=== PATIENT | female | born 1990 | race Asian ===

== ENCOUNTER 2018-10-19 02:59 | Inpatient (IN) | payer OTHER ==
[2018-10-19] VITALS (55 sets, daily range): BP systolic 98–164; BP diastolic 60–98; PULSE 63–106; TEMP 97.2–98.3
[~2018-10-19] VITALS: Ht 162.6 cm; Wt 86.4 kg
--- NOTE | 2018-10-19 03:30 | NUR ---
0303- PATIENT BEING SEEN AT 39.2 WEEKS GESTATION TODAY WITH C/O OF CONTRACTIONS. HISTORY NOTED ON ADMIT. 0324- SVE 4-100/0 INTACT. 0330- CALLED DR. TURPIN AT THIS TIME. LABOR ADMISSION ORDERS RECEIVED.
[2018-10-19 04:18] LABS: BASO % 0.2 % (0.0-2.0); EOS # 0.1 (0.0-0.7); EOS % 0.5 % (0-4.0); GRAN # 14.3 (1.4-6.5); GRAN % 79.8 % (42.2-75.2); HEMATOCRIT 34.4 % (37.0-47.0); HEMOGLOBIN 11.5 g/dl (12.5-16.0); LYMPH # 1.9 (1.2-3.4); LYMPH % 10.8 % (20.0-51.0); MEAN CELL VOLUME 74 fl (80.0-100.0); MEAN CORPUSCULAR HEMOGLOBIN 25 pg (27.0-31.0); MEAN CORPUSCULAR HGB CONC 33 g/dl (33.0-37.0); MEAN PLATELET VOLUME 12.3 fl (7.4-10.4); MONO # 1.4 (0.1-0.6); MONO % 7.7 % (1.7-9.3); PLATELET COUNT 178 K/mm3 (130-400); RED BLOOD COUNT 4.66 M/mm3 (4.10-5.30); REDCELL DISTRIBUTION WIDTH-CV 13.6 % (11.5-14.5)
--- NOTE | 2018-10-19 06:15 | NUR ---
PATIENT RESTING IN BED. DENIES QUESTIONS.
--- NOTE | 2018-10-19 08:10 | NUR ---
DR CHARLTON PREFORMED SVE. UNKNOWN WHEN RUPTURE OF MEMBRAES OCCURRED DURING HOSPITAL STAY. BROWN COLORED
[2018-10-19] MEDS ORDERED: PRENATAL (09:27)
[2018-10-19] MEDS ORDERED: ZIKS HEMATOGEN1 SG1 (09:27)
--- NOTE | 2018-10-19 13:50 | NUR ---
PATIENT OFF EFM AND WHEELED TO OPERATING ROOM.
[2018-10-19] MEDS ORDERED: PERCOCET 325 MG1 TA2 PO (16:25)
[2018-10-19] MEDS ORDERED: IBU600 MG PO (16:25)
[2018-10-20 02:00] VITALS: BP 128/74; PULSE 94; TEMP 97.9
[2018-10-20 07:40] VITALS: BP 122/77; PULSE 85; TEMP 98.5
[2018-10-20 07:52] LABS: BASO # 0.1 (0.0-0.2); BASO % 0.2 % (0.0-2.0); EOS % 0.2 % (0-4.0); GRAN # 17.4 (1.4-6.5); GRAN % 83.8 % (42.2-75.2); HEMOGLOBIN 10.2 g/dl (12.5-16.0); LYMPH # 1.7 (1.2-3.4); MEAN CELL VOLUME 74 fl (80.0-100.0); MEAN CORPUSCULAR HEMOGLOBIN 25 pg (27.0-31.0); MEAN CORPUSCULAR HGB CONC 34 g/dl (33.0-37.0); MEAN PLATELET VOLUME 11.8 fl (7.4-10.4); MONO # 1.4 (0.1-0.6); MONO % 6.8 % (1.7-9.3); PLATELET COUNT 155 K/mm3 (130-400); RED BLOOD COUNT 4.07 M/mm3 (4.10-5.30)
[2018-10-20 07:54] LABS: HEMATOCRIT 30.3 % (37.0-47.0)
--- NOTE | 2018-10-20 11:42 | NUR ---
Congratulated the family on behalf of [facility].
[2018-10-20 16:00] VITALS: BP 116/74; PULSE 83; TEMP 98.7
[2018-10-20 19:15] VITALS: BP 119/73; PULSE 82; TEMP 97.5
[2018-10-21 07:30] VITALS: BP 109/75; PULSE 81; TEMP 97.9
[2018-10-21 16:50] VITALS: BP 122/75; PULSE 82; TEMP 98.6
[2018-10-21 20:30] VITALS: BP 122/73; PULSE 80; TEMP 98.2
[2018-10-22 08:45] VITALS: BP 139/90; PULSE 73; TEMP 98
== END 2018-10-22 14:00 | disposition home or self-care (01) | DRG 788 ==
LOC: LDRO 02:59 → OB 03:43 → LDR 03:43 → OB 15:07
PROVIDERS: Obstetrics & Gynecology; ADMIT Obstetrics & Gynecology
PROC: 10D00Z1 Extraction of Products of Conception, Low, Open Approach (ICD-10-PCS; principal; 2018-10-19)
DX: O99.12 Other diseases of the blood and blood-forming organs and certain disorders involving the immune mechanism complicating childbirth (principal); D57.3 Sickle-cell trait; O62.0 Primary inadequate contractions; O99.02 Anemia complicating childbirth; D64.9 Anemia, unspecified; O69.1XX0 Labor and delivery complicated by cord around neck, with compression, not applicable or unspecified; Z3A.39 39 weeks gestation of pregnancy; Z37.0 Single live birth
CPT/HCPCS: J0690; J1885; J2370; J2400; J2405; J2590; J2795; J7120